=== PATIENT | female | born 2000 | race Two or more races ===

== ENCOUNTER 2022-12-27 05:58 | Emergency (ER) | payer OTHER ==
[~2022-12-27] VITALS: Ht 157.5 cm; Wt 63.5 kg
--- NOTE | 2022-12-27 06:00 | NUR ---
PT BIB [facility] TAKEN TO CHAIR
[2022-12-27 06:13] VITALS: BP 124/68
--- NOTE | 2022-12-27 06:22 | NUR ---
Dr. Pringle examining patient.
[2022-12-27 06:33] VITALS: BP 124/68
--- NOTE | 2022-12-27 06:33 | NUR ---
PATIENT BIB [facility] POLICE DEPT. PATIENT EXAMINED BY DR. BEARDEN. PATIENT MEDICALLY CLEARED AND RELEASED IN CUSTODY IN STABLE CONDITION. ORIGINAL PRE-BOOK FORM GIVEN TO OFFICER MESSI #[id number]. Patient discharged with v/s stable. Written and verbal after care instructions given and explained. Patient verbalized understanding. Police with in custody. All questions addressed prior to discharge. Advised to follow up with PMD.
== END 2022-12-27 06:00 | disposition home or self-care (01) ==
LOC: MED 05:58
DX: Z02.89 Encounter for other administrative examinations (principal); V49.88XA Car occupant (driver) (passenger) injured in other specified transport accidents, initial encounter; Y93.89 Activity, other specified; Y92.89 Other specified places as the place of occurrence of the external cause; Y99.8 Other external cause status
CPT/HCPCS: 99283